=== PATIENT | male | born 1985 | race Caucasian/White ===

== ENCOUNTER 2020-08-31 12:23 | Emergency (ER) | payer OTHER, SELFPAY ==
[2020-08-31] VITALS (12 sets, daily range): BP systolic 121–156; BP diastolic 72–99; PULSE 56–79; RESP 14–19; TEMP 36.8; O2SAT 97–100
--- NOTE | ~2020-08-31 | XR_ITS ---
EXAMINATION: XR chest 1V portable 08/31/2020 12:59 INDICATION: Shortness of breath. PROCEDURE: AP portable chest COMPARISON: No prior studies for comparison. FINDINGS: The lungs are clear. The cardiomediastinal silhouette is within normal limits. There are no pleural effusions. There is no pneumothorax suspected. IMPRESSION: 1: NO ACUTE CARDIOPULMONARY DISEASE. Reviewed, dictated and finalized at location A. [employer] HELPER
--- NOTE | 2020-08-31 12:34 | ECG_ITS ---
Measurements Intervals [place] Rate: 59 P: 42 SC: 192 QRS: -30 QRSD: 117 T: 20 QT: 421 QTc: 419 Interpretive Statements SINUS BRADYCARDIA LEFT AXIS DEVIATION INCOMPLETE RIGHT BUNDLE BRANCH BLOCK BORDERLINE ECG Electronically Signed On 08-31-2020 13:24:38 ENVIRONMENTAL SCIENCE PROGRAM DIRECTOR by Juliocesar Moulton D.O.
[2020-08-31 12:45] LABS: Basophils Absolute Auto 0.1 K/mm3 (0.0-0.1); Basophils Percent Auto 0.8 % (0.2-1.2); Eosinophils Absolute Auto 0.3 K/mm3 (0-0.3); Eosinophils Percent Auto 3.5 % (0-4.4); Hematocrit 44.3 % (42.0-52.0); Hemoglobin 15.8 g/dL (14.0-18.0); Immature Granulocyte Absolute 0.02 K/mm3 (0.00-0.031); Immature Granulocyte Percent A 0.3 % (0-0.5); Lymphocytes Absolute Auto 1.49 K/mm3 (0.9-3.2); Lymphocytes Percent Auto 19.1 % (18.3-44.2); Mean Corpuscular HGB Conc 35.7 g/dl (32-36); Mean Corpuscular Hemoglobin 35.1 pg (26-34); Mean Corpuscular Volume 98.4 fl (80-100); Mean Platelet Volume 9.8 fl (7.4-10.4); Monocytes Absolute Auto 0.6 K/mm3 (0.1-0.6); Monocytes Percent Auto 7.6 % (2.6-8.5); Neutrophils Absolute Auto 5.4 K/mm3 (1.3-6.7); Neutrophils Percent Auto 68.7 % (45.5-73.1); Platelet Count Result 176 k/mm3 (150-375); Red Cell Distribution Width 11.5 % (11.5-14.5); White Blood Count 7.8 K/mm3 (4.5-10.0)
[2020-08-31 13:01] LABS: Alveolar/Arterial O2 Gradient 12.5 mmHg; Base Excess ABG 0.4 mEq/l (+/-2.0); Fractional Inspired Oxygen 21 %; HCO3 ABG 24.8 mEq/l (22.0-26.0); Oxygen Content ABG 20.9 %vol (16.0-22.0); Oxyhemoglobin 95.9 % THb (90.0-100.0); PCO2 ABG 39.6 mmHg (35.0-45.0); PO2 ABG 89.8 mmHg (80.0-100.0); PO2 FiO2 Ratio Arterial Blood 4.28 %; Total Hemoglobin 15.5 g/dL (12.0-18.0); pH ABG 7.415 (7.350-7.450)
[2020-08-31 13:02] LABS: Device ROOM AIR; Modified Allen's Test Pass; Site Drawn LEFT RADIAL
[2020-08-31 13:04] LABS: Anion Gap 9 mmol/L (8-16); Blood Urea Nitrogen 14 mg/dL (9-20); Calcium 9.6 mg/dL (8.4-10.2); Carbon Dioxide 30 mmol/L (22-30); Chloride 98 mmol/L (98-107); Estimated CRCL calculation 93 ml/min; Estimated Glomerular Filt Rate > 60; Glucose 102 mg/dL (75-110); Potassium 3.9 mmol/L (3.4-5.0); Sodium 137 mmol/L (137-145)
--- NOTE | 2020-08-31 13:38 | ED.GENADULT ---
HPI - General Adult General Chief complaint: Shortness of Breath/Dyspnea Stated complaint: chest tightness, shortness of breath Time Seen by Provider: 08/31/20 12:26 Source: patient Mode of arrival: ambulatory Limitations: no limitations History of Present Illness HPI narrative: 35 years old white male presents with shortness of breath and chest tightness since July 18 when he was diagnosed of COVID-19 infection. Patient denies any fever, chills, nausea, vomiting, sore throat, headache. Patient reported that his symptoms are getting worse in the last few weeks. Patient works in the [employer] department and been out of work for the last few days because of inability to do any physical activities. Related Data Home Medications Medication Instructions Recorded Confirmed lamotrigine 08/31/20 08/31/20 lithium carbonate mg PO 08/31/20 modafinil mg 08/31/20 olanzapine mg 08/31/20 prazosin 08/31/20 Allergies Allergy/AdvReac Type Severity Reaction Status Date / Time amoxicillin Allergy Mild UNKNOWN Verified 11/13/18 12:57 Review of Systems Review of Systems: Narrative: CONSTITUTIONAL: Denies fever, chills, or sweats. EYES: Denies visual changes, redness, or discharge. ENT: Denies rhinorrhea, congestion, sore throat, or otalgia. CARDIOVASCULAR: Denies chest pain, palpitations, or edema. RESPIRATORY: Denies cough or dyspnea. GASTROINTESTINAL: Denies abdominal pain, nausea, vomiting, or diarrhea. GENITOURINARY: Denies dysuria or hematuria. SKIN: Denies rash or itching. MUSCULOSKELETAL: Denies back pain, joint pain, or myalgia. NEUROLOGIC: Denies headache, numbness, or weakness. PSYCHIATRIC: Denies anxiety or depression. PMFSH Past Medical History Medical History (Updated 08/31/20 @ 14:03 by Tawana Guerrero MD) COVID-19 virus infection Exam Narrative: Exam Narrative: General appearance: Well-developed, well-nourished Skin: Normal color Head: Normocephalic, nontraumatic Eyes: Clear conjunctiva ENT: Oropharynx normal, ears normal, nose normal Neck: Supple, nontender Chest and respiratory: Airway patent, no respiratory distress, no accessory muscle use Heart: Regular rate/rhythm Abdomen: Soft, nontender, no organomegaly, quiet bowel sounds Vascular: Normal peripheral pulses, normal capillary refill. 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, no gross motor deficit Course Course Emergency Course: Stable Consultations Consultation #1: DR WILEY, see patient at 10 AM tomorrow Date: 08/31/20 Time: 14:11 Vital Signs Vital signs: Vital Signs Temperature 36.8 C 08/31/20 12:31 Pulse Rate 78 08/31/20 12:31 Respiratory Rate 18 08/31/20 12:31 Blood Pressure 156/99 H 08/31/20 12:31 Pulse Oximetry 98 08/31/20 12:31 Temperature 36.8 C 08/31/20 12:31 Pulse Rate 68 08/31/20 12:33 Respiratory Rate 17 08/31/20 12:33 Blood Pressure 156/99 H 08/31/20 12:31 Pulse Oximetry 100 08/31/20 12:33 Medical Decision Making MDM Narrative Medical decision making narrative: Patient presents with chest pain and shortness of breath since got infected with Covid on July 18. Labs, chest x-ray, D-dimer, ABG on room air ordered. Further plan to follow Differential Diagnosis Differential Diagnosis: Patient presents with shortness of breath and chest tightness since the beginning of the Covid infection July 18. Labs, chest x-ray, blood gas on room air ordered. Pulmonary embolism, coronary artery disease, pneumonia, my concern. Further plan to follow Vital Signs Vital Signs: Vital Signs Temperature 36.8 C 08/31/20 12:31 Pulse Rate 78 08/31/20 1
[2020-08-31 13:51] LABS: D Dimer 0.27 ug/mL (<0.48)
== END 2020-08-31 14:23 | disposition home or self-care (01) ==
PROVIDERS: Emergency Provider Emergency Medicine
DX: R06.00 Dyspnea, unspecified (principal); R07.9 Chest pain, unspecified; Z86.19 Personal history of other infectious and parasitic diseases; R00.1 Bradycardia, unspecified; I45.10 Unspecified right bundle-branch block
CPT/HCPCS: 36415; 36600; 71045; 80048; 82805; 85025; 85380; 93005; 99283